=== PATIENT | male | born 1930 | race Native Hawaiian/Other Pacific Islander ===

== ENCOUNTER → 2016-07-26 | Outpatient (CLI) | payer OTHER ==
[~2016-07-26] MED LIST: ASPIRIN EC81 M1 PO; CENTRUM SILVER1 EAC2 PO; COLACE100 MG; COLACE100 MG PO; COSOPT EYE DROPS5 ML OPHTHALMIC; COUMADIN 2 MG TA2 M1; COUMADIN 5 MG TA5 M1; ENABLEX15 MG PO; HYDROCODON-ACE1 EAC7; LANSOPRAZOLE30 MG PO; LUMIGAN2.5 M1 OPHTHALMIC; SIMVASTATIN20 MG PO; VICODIN 5-5001 EACH
== END ==
LOC: SPEECH 11:14 → RAD 11:14
DX: R13.10 Dysphagia, unspecified (principal)

== ENCOUNTER 2018-09-16 09:22 | Inpatient (IN) | payer OTHER ==
[~2018-09-16] VITALS: Ht 167.6 cm; Wt 68.0 kg
--- NOTE | ~2018-09-16 | HC ---
[facility] [place] [address] CONSULTATION Name: OPAL MORGANGO Alireza Room #: 458-P [facility].#: [id number] Admission: 09/16/18 ������������������ Attend Phys: Zachary Joseph MD Discharge: ������������������ Date of : 34 Report #: [id number] THIS REPORT FOR: //name// CC: Zachary Joseph DATE OF SERVICE: 09/16/2018 HISTORY OF PRESENT ILLNESS: This is an 88-year-old male patient who was evaluated by me for dizziness. This patient is a poor historian. It looks like dizziness is going on for some time and it has become worse. It becomes somewhat worse when he tries to get up. There is no other factor, which make it worse or better. He thinks he is worse than the last 4-5 days. Talking to nurse practitioner in the Emergency Room, it looks like he does have some postural drop in blood pressure. REVIEW OF SYSTEMS: Indicate that he is healthy. He does have some hypertension according to him. He did not have any surgeries on his heart. He denies any new eye, ENT, cardiac, respiratory, GI, , musculoskeletal, constitutional, dermatological, hematological, psychiatric, throat, allergic symptom associated with present symptomatology. PAST MEDICAL HISTORY: Negative for any stroke. FAMILY HISTORY: Negative for any early age stroke. SOCIAL HISTORY: Does not smoke or drink any alcohol. PHYSICAL EXAMINATION: NEUROLOGIC: The patient's examinations indicate the patient is alert, responsive, oriented. He thinks his speech, concentration, fund of knowledge and memory is at his baseline. Cranial nerve examination 2-12 looks unremarkable. He has symmetrical strength, sensation, reflexes and tone in all 4 extremities. There is no meningeal sign. There is no carotid bruit. EXTREMITIES: His pulses are palpable. He has no edema, cyanosis or jaundice. CARDIAC: Unremarkable. RESPIRATORY: No respiratory difficulty or rhonchi was noticed. VITAL SIGNS: Blood pressure is 147/56, respiration is 16, pulse is 53, temperature is 98. LABORATORY DATA: His WBC count is 7.1 and his sodium is normal. His MRI demonstrated no acute stroke. His MRA of the head and neck is unremarkable. IMPRESSION: It is unlikely that there is any neurological etiology for the patient's symptoms. The most likely etiology for the patient's dizziness is either ENT pathology or postural hypotension if that can be documented. [address] [address] CONSULTATION Name: OPAL MORGANGO Room #: 458-P [facility] Theodore Hercules#: [id number] Admission: 09/16/18 ������������������ Attend Phys: Zachary Joseph MD Discharge: ������������������ Date of : 32 Report #: [id number] RECOMMENDATION: I do not believe any further neurological workup is indicated in this patient. I will suggest working up and managing systemic including ENT cause for the patient. DICTATION ENDS HERE ��������������������������������������������� ���������������������������������������� By: ��������������������������������������������� 1707 1823 Yazan Timmons MD /nai
--- NOTE | ~2018-09-16 | H ---
[facility] [place] [address] HISTORY AND PHYSICAL Name: OPAL MORGANKAREN Lay Room #: 460-P [facility] M.Serjio#: [id number] Admission: 09/16/18 ������������������ Attend Phys: Zachary Joseph MD Discharge: ������������������ Date of : 32 Report #: [id number] THIS REPORT FOR: //name// CC: Zachary Joseph DATE OF SERVICE: 09/16/2018 CHIEF COMPLAINT: Dizziness and right-sided flank pain. HISTORY OF PRESENT ILLNESS: Due to the complaints that the patient's reported to my office, he was directed to the Emergency Room. In the Emergency Room, his history had some components of benign paroxysmal positional vertigo, but other prominent features were missing. The Emergency Room provider discussed the patient's presentation and findings with Dr. Timmons of the Neurology Department. Dr. Timmons recommended further testing and a formal Neurology consultation and admission for observing for the development of a possible posterior cerebral circulation stroke. The information presented by the patient and his and daughter to the Emergency Room provider report that the dizziness is a spinning sensation, vertigo sensation and then he has difficulty walking straight. This is caused by turning his head from side to side. He also complains of lower right-sided abdominal pain, which comes and goes and is associated with nausea. There are no triggers for the abdominal pain. Food does not trigger it, dizziness does not trigger it. He has no vomiting, diarrhea or constipation. He has not had any coffee or spicy foods to trigger his nausea this morning. Two weeks ago, he was seen in my office with his providing history at that time as well that he was having lip-smacking behaviors and scratching behaviors and tongue movements that both the and the patient himself attributed to times of increased anxiousness. He had citalopram that had been prescribed several years earlier that he had not taken. Even on that visit he was encouraged to start taking it again He and his family thought that some of his dizziness, vertigo and right lower quadrant abdominal pain started after the citalopram and was caused by the citalopram, so he discontinued it. The symptoms, however, continued without change, which suggested that the citalopram did not contribute to or cause his current symptoms. PAST MEDICAL HISTORY: Positive for tubular adenomatous colon polyps on colonoscopy, 02/09/2017 and gastritis with intestinal metaplasia on EGD, 02/17/2015. He has GERD, hyperlipidemia, osteoarthritis and overactive bladder. Two sleep studies at [facility] showed mild obstructive sleep apnea, 11/05/2005, that had progressed significantly, 09/13/2017, to 41 events per sleep hour with low oxygen saturation of 80% and a CPAP setting of 5 cm of water pressure was initially recommended, with consideration for a repeat titration. At this time, the patient does not recall having had a [place] [address] HISTORY AND PHYSICAL Name: OPAL MORGANKAREN Lay Room #: 460-P [facility] M.R.#: [id number] Admission: 09/16/18 ������������������ Attend Phys: Zachary Joseph MD Discharge: ������������������ Date of : 32 Report #: [id number] had that diagnosis. CURRENT MEDICATIONS: Include lansoprazole 30 mg daily; VESIcare [address] Rodríguez, his urologist and citalopram 10 mg one-half or one tablet was prescribed several years ago and the patient took it for a while, then discontinued it last year and then resumed it again after it was discussed at his office visit, 09/05/2018, in my office. He takes 81 mg of aspirin, 2 Citrucel tablets daily, 1000 mg of fish oil tablet daily and glucosamine chondroitin sulfate. He takes atorvastatin 40 mg daily for his elevated cholesterol. Importantly, he does not take Aleve or ibuprofen. ALLERGIES: PENICILLIN. SOCIAL HISTORY: He stopped smoking cigarettes a long time ago. He rarely drinks alcohol, on special occasions. He does not chew tobacco, does not use recreational drugs. OBJECTIVE PHYSICAL EXAMINATION: GENERAL: He is awake, alert and oriented. His had left and gone home at the time of my examination. He was feeling relatively well and had eaten supper. HEENT: The right tympanic membrane is partially obscured from wax, but the left is normal. HEENT exam is normal. PERRLA. The oropharynx is a little dry. LUNGS: Clear. HEART: Heart tones are normal. There is a soft right carotid bruit present. S1, S2 are normal and regular. ABDOMEN: Soft and nontender, without hepatosplenomegaly or masses. At the time of my exam, there was no mention made of right lower quadrant abdominal pain. He denied urinary difficulties. NEUROLOGIC: He was able to get out of his bed without assistance and walk to the door of the room and back to his bed without assistance or without obvious abnormality. There was no lip smacking or abnormal tongue movements seen during my examination tonight. ASSESSMENT: 1. Positional vertigo - probably benign paroxysmal positional vertigo. 2. Right lower quadrant abdominal pain is not currently active. 3. Gastroesophageal reflux disease. 4. Mild orthostatic blood pressure changes: Diastolic drops from 118 to 110, but the pulse goes from 74 to 105 upon standing up. 5. Hemoconcentration is seen from a normal hemoglobin for him being 13.6 or 12.8 and his current hemoglobin being 13.5. 6. History of significantly abnormal sleep study. [facility] [address] [place] [address] HISTORY AND PHYSICAL Name: LAKISHA MORGAN Room #: 460-P [facility] Theodore Hercules#: [id number] Admission: 09/16/18 ������������������ Attend Phys: Zachary Joseph MD Discharge: ������������������ Date of : 32 Report #: [id number] PLAN: The patient is to see Dr. Timmons. IV fluids at a gentle rate until then. ��������������������������������������������� ���������������������������������������� By: ��������������������������������������������� 2311 0024 Zachary Joseph MD /nt
[2018-09-16 09:22] VITALS: BP 126/51
[~2018-09-16 09:22] MED LIST changes: -COSOPT EYE DROPS5 ML OPHTHALMIC; +COSOPT OCUMETER10 ML OPHTHALMIC
[2018-09-16 10:40] LABS: BASOPHILS 0.4 % (0.0-2.0); EOSINOPHILS 2.8 % (0.0-3.0); HEMATOCRIT 41.2 % (42.0-52.0); HEMOGLOBIN 13.5 gm/dL (14.0-18.0); LYMPHOCYTES 17.5 % (24.0-44.0); MCH 30.3 pg (26.0-34.0); MCHC 32.9 g/dL (28.0-37.0); MCV 92.2 fL (80.0-100.0); MONOCYTES 9.5 % (1.0-8.0); PLATELET COUNT 230 thou/uL (150-400); POLYS 69.8 % (36.0-66.0); RBC 4.47 mil/uL (4.50-6.00); RDW 13.7 % (10.5-14.5); WBC 7.1 thou/uL (4.0-11.0)
[2018-09-16 10:42] LABS: CALCIUM 9.6 mg/dL (8.5-10.1); CREATININE 1.3 mg/dL (0.7-1.3); POTASSIUM 4.4 mmol/L (3.5-5.1)
[2018-09-16 10:47] LABS: ALBUMIN 3.7 g/dL (3.4-5.0); TOTAL BILIRUBIN 0.6 mg/dL (<0.1-1.0); TOTAL PROTEIN 7.4 g/dL (6.4-8.2)
[2018-09-16] MEDS ORDERED: VESICARE10 M1 PO ×2 (10:51→14:34)
[2018-09-16 11:07] LABS: URINE BILIRUBIN NEGATIVE (Negative); URINE BLOOD TRACE (Negative); URINE CLARITY CLEAR; URINE COLOR YELLOW; URINE GLUCOSE-RANDOM* NEGATIVE (Negative); URINE KETONES NEGATIVE (Negative); URINE LEUKOCYTES-REFLEX NEGATIVE (Negative); URINE NITRITE-REFLEX NEGATIVE (Negative); URINE PROTEIN (DIPSTICK) NEGATIVE (Negative); URINE SPECIFIC GRAVITY <= 1.005 (1.005-1.035); URINE UROBILINOGEN 0.2 E.U./dl (0.2-1.0)
[2018-09-16] MEDS ORDERED: CITRUCEL500 MG PO (14:29)
[2018-09-16] MEDS ORDERED: GLUCOSAMINE PO (14:30)
[2018-09-16] MEDS ORDERED: FISH OIL 1,001000 M2 PO (14:31)
[2018-09-16] MEDS ORDERED: ATORVASTATIN CA40 MG PO (14:31)
--- NOTE | 2018-09-16 15:01 | EKG ---
[address] [address] ELECTROCARDIOGRAM REPORT Name: OPAL MORGANGO Alireza Room #: 170-2 [facility]..#: [id number] ������������������ Admission: 09/16/18 ������������������ Attend Phys: Zachary Joseph MD Discharge: ������������������ Date of : 34 Report #: [id number] ����������������������������������������������������������������� [id number] THIS REPORT FOR: //name// 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: MILAGROS : 1930 Requested By: Juan Pablo Diaz Order Number: [id number] MD: Denis Lyles Measurements Intervals Everetts Rate: 54 P: 55 OR: 228 QRS: 61 QRSD: 99 T: 76 QT: 416 QTc: 395 Interpretive Statements Sinus rhythm Prolonged OR interval Left ventricular hypertrophy No previous ECG available for comparison Electronically Signed On 09-16-2018 15:01:01 [employer] by Denis Lyles [email or web address] ��������������������������������������������� <ELECTRONICALLY SIGNED> ���������������������������������������� By: Denis Lyles MD ��������������������������������������������� 09/16/18 1501 0934 3 Denis Lyles MD /NOEL
[2018-09-16 15:22] VITALS: BP 123/103
[2018-09-16 15:45] VITALS: BP 134/73
[2018-09-16 16:13] VITALS: BP 147/56
--- NOTE | 2018-09-16 19:10 | NUR ---
PT ARRIVED ON UNIT LATE THIS AFTERNOON FROM ER. ADMISSION ASSESSMENT, HX AND EDUCATION COMPLETE. ORDERS IMPLEMENTED. PT RESTING COMFORTABLY.
[2018-09-16 20:44] VITALS: BP 147/68
--- NOTE | 2018-09-17 02:37 | NUR ---
PT USED CALL LIGHT EFFECTIVELY PT DID NOT GET UP UNASSISTED NO ISSUES OVERNIGHT.
[2018-09-17 04:43] VITALS: BP 121/53
[2018-09-17 08:10] VITALS: BP 142/67
[2018-09-17 08:33] VITALS: BP 148/61
[2018-09-17 08:34] VITALS: BP 146/60
[2018-09-17 09:15] VITALS: BP 146/60
--- NOTE | 2018-09-17 15:06 | NUR ---
PT ALERT AND ORIENTED TIMES FOUR. VSS, 98%RA, SR ON TELE. PT DENIES PAIN/SOA. PT UP WITH STANDBY ASSIST. PT TOLERATES MEDS AND MEALS. PT PROGRESSING TOWRADS POC GOALS.
== END 2018-09-17 15:00 | disposition home or self-care (01) | DRG 149 ==
LOC: ER 09:22 → EROBS 13:54 → 4W 13:54 → ENTRNSPT 09-17 13:53 → EDTRNSPTSTS 09-17 14:15 → 4W 09-17 15:00
PROVIDERS: Nurse Practitioner; ADMIT Internal Medicine
DX: H81.10 Benign paroxysmal vertigo, unspecified ear (principal); K21.9 Gastro-esophageal reflux disease without esophagitis; H40.9 Unspecified glaucoma; E78.00 Pure hypercholesterolemia, unspecified; M19.90 Unspecified osteoarthritis, unspecified site; G47.33 Obstructive sleep apnea (adult) (pediatric); Z96.1 Presence of intraocular lens; Z98.42 Cataract extraction status, left eye; Z87.891 Personal history of nicotine dependence; Z98.41 Cataract extraction status, right eye; Z79.82 Long term (current) use of aspirin; Z79.899 Other long term (current) drug therapy; Z88.0 Allergy status to penicillin
CPT/HCPCS: 10045

== ENCOUNTER → 2019-12-12 | Outpatient (CLI) | payer OTHER ==
[~2019-12-12] MED LIST changes: +ATORVASTATIN CA40 MG PO; +CITRUCEL500 MG PO; +FISH OIL 1,001000 M2 PO; +GLUCOSAMINE PO; +VESICARE10 M1 PO
== END ==
LOC: ULTRA 13:37
DX: K80.20 Calculus of gallbladder without cholecystitis without obstruction (principal); N28.1 Cyst of kidney, acquired

== ENCOUNTER → 2019-12-31 | Outpatient (CLI) | payer OTHER | LOC: NUC 09:50 | PROVIDERS: ATTEND Specialist | DX: R10.11 Right upper quadrant pain (principal) ==

== ENCOUNTER → 2020-02-02 | Outpatient (CLI) | payer OTHER | LOC: SJCVC 13:02 | PROVIDERS: ATTEND Internal Medicine Cardiovascular Disease | DX: I44.0 Atrioventricular block, first degree (principal); R00.1 Bradycardia, unspecified; E78.5 Hyperlipidemia, unspecified; Z82.49 Family history of ischemic heart disease and other diseases of the circulatory system; Z87.891 Personal history of nicotine dependence; Z79.899 Other long term (current) drug therapy ==

== ENCOUNTER → 2020-02-05 | Outpatient (CLI) | payer OTHER | LOC: SJCVCIMAG 09:02 | PROVIDERS: ATTEND Internal Medicine Cardiovascular Disease | DX: Z01.810 Encounter for preprocedural cardiovascular examination (principal); I44.0 Atrioventricular block, first degree; R00.1 Bradycardia, unspecified; Z88.0 Allergy status to penicillin; Z79.899 Other long term (current) drug therapy; Z82.49 Family history of ischemic heart disease and other diseases of the circulatory system ==

== ENCOUNTER → 2020-02-23 | Outpatient (CLI) | payer OTHER ==
[~2020-02-23] MED LIST changes: -ATORVASTATIN CA40 MG PO; +LIPITOR40 MG PO
== END ==
LOC: LAB 14:00
PROVIDERS: ATTEND Student in an Organized Health Care Education/Training Program
DX: Z01.812 Encounter for preprocedural laboratory examination (principal); Z11.59 Encounter for screening for other viral diseases

== ENCOUNTER 2020-02-26 09:07 | Day surgery (SDC) | payer OTHER ==
[~2020-02-26] VITALS: Ht 167.6 cm; Wt 66.2 kg
[~2020-02-26 09:07] MED LIST changes: +GLUCOSAMINE CH1 EAC4 PO; +MYRBETRIQ50 MG PO; +PAXIL20 MG PO; +PROSCAR 5MG TABL5 M1 PO; +VITAMIN D31250 MCG PO
[2020-02-26 10:15] VITALS: BP 153/57
[2020-02-26 15:28] VITALS: BP 126/55
[2020-02-26 15:40] VITALS: BP 119/68
[2020-02-26 19:04] VITALS: BP 138/58
--- NOTE | 2020-02-26 19:51 | NUR ---
PATIENT ADMITTED FROM OR WITH LUMBAR LAMINONECTOMY, LOWER BACK TELFA AND TEGADERM. PATIENT C/O PAIN WITH BACK AREA, OXYCODONE 1 TABLET GIVEN. IV FLUIDS STARTED 75CC/HR. AT BEDSIDE. ADMISSION DONE, REPORT GIVEN TO BENEDICT/CASEY.
[2020-02-27 00:10] VITALS: BP 127/53
--- NOTE | 2020-02-27 00:45 | NUR ---
ASSUMED PT CARE AT 1900. PT IS A&OX4. REPORTS NO PAIN. 4 LAP SITES COVERED WITH BANDAIDS C/D/I. GIVEN SOME JELLO AND LEMON LAC VIEUX SODA TONIGHT, PT TOLERATED WELL. FLUIDS INFUSING PER ORDER. USING THE URINAL AT BEDSIDE, WALKED TO THE TOILET WITH STANDBY. NO COMPLAINTS AT THIS TIME, WILL CONTINUE TO MONITOR.
[2020-02-27 05:26] VITALS: BP 109/42
[2020-02-27 07:49] VITALS: BP 129/48
--- NOTE | 2020-02-27 07:59 | NUR ---
ASSUMED CARE OF PATIENT NOW. ASSESSMENT CHARTED. DENIES PAIN. LAP SITE INCISIONS C/D/I. VSS. PATIENT EXRESSES EXCITEMENT ABOUT GETTING TO GO HOME TODAY. IV SALINE LOCKED PER PATIENT REQUEST ON R AC; INTACT. PATIENT EXPRESSES DESIRE TO D/C THE IV. PATIENT UP WITH ASSIST TO BATHROOM. PATIENT COMPLETED ADL'S WITH NO ISSUES. PATIENT NOW RESTING IN BED AND COMPLAINS OF NO OTHER ISSUES. FALL PRECAUTIONS IN PLACE. WILL CONTINUE TO MONITOR
--- NOTE | 2020-02-27 12:23 | NUR ---
ASSESSMENT: CM REVIEWED CHART. PT IS HERE FOR KRISTINA LEONARD. CM SPOKE WITH PATIENTS SON WHO IS PRESENT. PT LIVES AT HOME WITH HIS . PT IS FULLY INDEPENDENT WITH ADLS AND AMBULATION. PT HAS NO DME OR THE NEED FOR IT. PT HAS NOT HAD HH IN THE PAST OR BEEN TO A SNF. CM DISCUSSED ROLE. PT STATES HE IS VERY ACTIVE AND WILL HAVE NO NEEDS FROM CM.
[2020-02-27] MEDS ORDERED: LORCET 5-325 M1 EACH PO (12:59)
[2020-02-27 13:10] VITALS: BP 129/48
--- NOTE | 2020-02-27 13:53 | NUR ---
PATIENT LEFT UNIT TO HOME AT APPROX. 1345. INSTRUCTIONS AND PRESCRIPTIONS WERE GIVEN AND ACKNOWLEDGED. LEFT HOME W SON
--- NOTE | 2020-03-01 14:44 | O ---
[facility] [place] [address] OPERATIVE REPORT Name: LAKISHA MORGAN Room #: DEP [facility].#: [id number] Admission: 02/26/20 Attend Phys: Joao Go MD Discharge: 02/27/20 Date of : 32 Report #: [id number] THIS REPORT FOR: cc: Zachary Joseph MD, Stanley P. MD Chu,Joao Schmidt MD ~ CC: Joao Joseph MD PREOPERATIVE DIAGNOSIS: Cholecystitis with cholelithiasis. POSTOPERATIVE DIAGNOSIS: Cholecystitis with cholelithiasis. PROCEDURES PERFORMED: Laparoscopic cholecystectomy with cholangiogram. ANESTHESIA: General anesthesia. SURGEON: Joao Go MD COMPLICATIONS: None. ESTIMATED BLOOD LOSS: 5 mL. PROCEDURE NOTE: With the patient under general anesthesia, IV antibiotic was administered. Abdomen was prepped and draped in sterile fashion. The patient tolerated general anesthetic well. A timeout was performed. Abdomen was prepped and draped in sterile fashion. A 2 cm curved incision was made infraumbilically. Fascia identified. Fascia was then grasped with hemostat. Fascia was then opened under visualization. An 0 Vicryl suture placed on the fascia for retraction. With the abdominal wall lifted with the 0 Vicryl suture, the peritoneum was entered with a small Veress needle. Insufflation was performed without difficulty. With the abdomen distended and reaching pressure of 15, 11 mm trocar was placed through the peritoneum into the pneumoperitoneum without harming underlying tissue. The patient's evaluation laparoscopically shows a right inguinal hernia. No hernia on the left side. This is an indirect defect. Gallbladder was thinned and somewhat distended. Gallbladder was lifted cephalad with the grasping trocar, made a hole in the gallbladder and the bile was aspirated out. The peritoneum and fat was dissected underneath the proximal part of the gallbladder, this then revealed the cystic duct, there was fibrosis around the cystic duct. The cystic duct was isolated. A clip was placed in junction of cystic duct to the gallbladder, opening was made in the cystic duct, cholangiogram catheter was placed. Fluoroscopic cholangiogram was obtained. Common bile duct filled out well, no filling defect. The common hepatic duct also filled out, but not to a lesser degree. The liver intrahepatic duct was seen without difficulty. No filling defect in the common duct. Cholangiogram catheter was then removed. Proximal cystic duct was clipped x 2 and then [facility] [address] [place] [address] OPERATIVE REPORT Name: MORGANLAKISHA Room #: DEP [facility] Diomedes#: [id number] Admission: 02/26/20 Attend Phys: Joao Go MD Discharge: 02/27/20 Date of : 32 Report #: [id number]. Cystic artery was then isolated, clipped x 2 proximally and 1 distally and divided. Gallbladder was then freed posteriorly with cautery and cautery dissection. Gallbladder was placed in specimen bag. The gallbladder was removed and there are 2 small stones measuring about 3-4 mm in the gallbladder. No lesions identified in the gallbladder. Specimen was sent to pathology. Liver bed was checked, hemostasis obtained. Clips were intact. Irrigation was aspirated out, trocars were removed. The fascia defect infraumbilically was closed with [id number] 0 Vicryl x 2. Skin was irrigated, closed with 5-0 PDS. Steri-Strips, Band-Aids applied. The patient was awakened and taken to recovery room. <ELECTRONICALLY SIGNED> By: Joao Go MD 03/01/20 1444 1431 1442 Joao Go MD /nt
--- NOTE | 2020-03-01 18:06 | PATH ---
[facility] [address] [place] [address] PATHOLOGY RPT PROCEDURE Name: CATHYMARLENAREMINGTON A Room #: DEP [facility] [place] [place] M..#: [id number] Admission: 02/26/20 Date of : 32 Discharge: 02/27/20 Report #: [id number] Path Case #: [id number] [facility] Accession Number: [id number] . 01 Material submitted: . gallbladder - GALLBLADDER . 01 Clinical history: . Cholecystitis, cholelithiasis . 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 . (VIOLETA:omkar; 03/01/2020) [facility] 03/01/2020 1358 Local . 02 Comment: We find no evidence of malignancy in any of the tissue examined. . (VIOLETA:omkar; 03/01/2020) . 02 Electronically signed: . Reji Flores MD, Pathologist NPI- [id number] . 01 Gross description: . The specimen is received in formalin labeled "Remington Morgan, gallbladder" and consists of a previously opened pink-salguero gallbladder measuring 5.4 x 3.1 x 1.1 cm. The margin is inked black. Present at the bottom the container are 2 black-brown calculi measuring 0.5 and 0.6 cm. The mucosa is pink-green to brown and roughened/granular with an average wall thickness of 0.1 cm. No masses are identified. Chief Information Security Officer sections are submitted in A1. (SDY; 02/27/2020) SYU/SYU 02/27/2020 1446 Local . 02 Pathologist provided ICD-10: K80.10 . 02 CPT . 516661 Specimen Comment: A courtesy copy of this report has been sent to [phone] Specimen Comment: [phone] Specimen Comment: Report sent to / Performed at: 01 [place] [address] PATHOLOGY RPT PROCEDURE Name: REMINGTON MORGAN A Room #: DEP [facility] [place] [place] Diomedes#: [id number] Admission: 02/26/20 Date of : 32 Discharge: 02/27/20 Report #: [id number] Path Case #: [id number] [facility] Indira Hernandez [address] [place] [address] [address], [place] [id number] MD Tashi Santizo MD Phone: [phone] Performed at: [address] [id number] MD Reji Flores MD Phone: [phone]
== END 2020-02-27 14:00 | disposition home or self-care (01) ==
LOC: OR 09:07 → 4S 15:33 → OR 16:44 → 4S 16:44 → OR 02-27 14:00
PROVIDERS: ATTEND Surgery
DX: K80.10 Calculus of gallbladder with chronic cholecystitis without obstruction (principal); K40.90 Unilateral inguinal hernia, without obstruction or gangrene, not specified as recurrent; E78.00 Pure hypercholesterolemia, unspecified; H40.9 Unspecified glaucoma; K21.9 Gastro-esophageal reflux disease without esophagitis; Z98.890 Other specified postprocedural states; Z79.899 Other long term (current) drug therapy; Z87.891 Personal history of nicotine dependence; Z88.0 Allergy status to penicillin
CPT/HCPCS: 10102; 50010; 50101; 50411; 50555; 50558; 51489; 52265; 53307; 53310; 53312; 55245; 55317; 56462; 56525; 56526; 62110; 62900; 70005

== ENCOUNTER → 2021-03-07 | Outpatient (CLI) | payer OTHER ==
[~2021-03-07] MED LIST changes: +LORCET 5-325 M1 EACH PO
== END ==
LOC: MRI 08:03
PROVIDERS: ATTEND Psychiatry & Neurology Neurology
DX: G93.89 Other specified disorders of brain (principal); G91.2 (Idiopathic) normal pressure hydrocephalus